=== PATIENT | female | born 1935 | race Caucasian/White ===

== ENCOUNTER 2018-01-05 13:55 | Inpatient (IN) | payer OTHER ==
[~2018-01-05] VITALS: Ht 157.5 cm; Wt 46.3 kg
--- NOTE | ~2018-01-05 | EKG ---
[place] [address] [facility] [employer] [place] [address] ELECTROCARDIOGRAM REPORT Name: MARNI RODRIGUEZJORIE Scooter Room #: 211-P [facility] [place] .R.#: [id number] Admission: 01/05/18 Attend Phys: Titus Woody MD Discharge: Date of : 33 Report #: [id number] THIS REPORT FOR: //name// [facility] ED Test Date: 2018-01-05 Test Time: 16:09:08 Pat Name: MARIA E RODRIGUEZ Department: Room: 211 Gender: F Commercial Insulator: BETSY : 1935 Requested By: Emely Zavala Order Number: [id number] MD: Dex Coles Measurements Intervals [place] Rate: 145 P: MO: QRS: -40 QRSD: 96 T: 168 QT: 302 QTc: 469 Interpretive Statements Atrial fibrillation with rapid V-rate LVH with secondary repolarization abnormality Anterior Q waves, possibly due to LVH Compared to ECG 10/22/2013 14:46:40 Heart rate has increased Electronically Signed On 01-07-2018 15:18:17 [employer] by Dex Coles [email or web address] <ELECTRONICALLY SIGNED> By: Dex Coles MD, [facility] 01/07/18 1518 [id number] [id number] Dex Coles MD, [facility] /EPI
[2018-01-05 13:55] VITALS: BP 122/66
[~2018-01-05 13:55] MED LIST: ARTIFICIAL TEAR15 M3 OPHTHALMIC; ATORVASTATIN CA40 MG PO; AUGMENTIN 875875 MG PO; FUROSEMIDE 40 M40 M1 PO; JUVEN PACKET1 EACH PO; KEFLEX250 MG PO; KEFLEX500 MG PO; KLOR-CON 1010 MEQ PO; LANOXIN 0.120.125 M1 PO; METOPROLOL SUCC25 M1 PO; MULTI VITAMIN1 EACH PO; NORCO 5-325 TA1 EACH PO; PERCOCET PO; POTASSIUM GLUCO99 M1 PO; POTASSIUM20; PRADAXA75 MG PO; PREDNISONE 10 M10 MG; TRINATAL ULTRA1 EACH PO; TRIPLE ANTIBIO1 EACH TP
[2018-01-05 15:48] LABS: URINE BILIRUBIN NEGATIVE (Negative); URINE BLOOD NEGATIVE (Negative); URINE CLARITY CLEAR; URINE COLOR YELLOW; URINE GLUCOSE-RANDOM* NEGATIVE (Negative); URINE KETONES NEGATIVE (Negative); URINE LEUKOCYTES NEGATIVE (Negative); URINE NITRITE NEGATIVE (Negative); URINE PROTEIN (DIPSTICK) NEGATIVE (Negative); URINE SPECIFIC GRAVITY 1.025 (1.005-1.035); URINE UROBILINOGEN 0.2 E.U./dl (0.2-1.0)
[2018-01-05 16:45] LABS: BASOPHILS 0.4 % (0.0-2.0); EOSINOPHILS 0.1 % (0.0-3.0); HEMATOCRIT 42.2 % (37.0-47.0); HEMOGLOBIN 13.9 gm/dL (12.0-15.0); LYMPHOCYTES 8.5 % (24.0-44.0); MCH 31.4 pg (26.0-34.0); MCV 94.9 fL (80.0-100.0); MONOCYTES 3.5 % (1.0-8.0); PLATELET COUNT 255 thou/uL (150-400); POLYS 87.5 % (36.0-66.0); RBC 4.45 mil/uL (4.20-5.00); RDW 14.5 % (10.5-14.5); WBC 12.6 thou/uL (4.0-11.0)
[2018-01-05 16:54] LABS: ANION GAP 11 mmol/L (7-16); BUN 45 mg/dL (7-18); CALCIUM 9.9 mg/dL (8.5-10.1); CHLORIDE 106 mmol/L (98-107); CO2 25 mmol/L (21-32); CREATININE 1.2 mg/dL (0.6-1.0); GLUCOSE 97 mg/dL (74-106); POTASSIUM 4.1 mmol/L (3.5-5.1); SODIUM 142 mmol/L (136-145)
[2018-01-05 17:02] LABS: ALBUMIN 3.4 g/dL (3.4-5.0); LIPASE 72 U/L (73-393); SGOT 29 U/L (15-37); SGPT 33 U/L (30-65); TOTAL BILIRUBIN 0.5 mg/dL (<0.1-1.0); TOTAL PROTEIN 6.9 g/dL (6.4-8.2); TROPONIN-I < 0.04 ng/mL (<0.06)
[2018-01-05 19:45] VITALS: BP 123/51
[2018-01-05 20:07] VITALS: BP 109/82
[2018-01-05 23:41] VITALS: BP 115/55
[2018-01-06 04:45] LABS: CALCIUM 9.2 mg/dL (8.5-10.1); CREATININE 0.9 mg/dL (0.6-1.0); MAGNESIUM 1.8 mg/dL (1.8-2.4); POTASSIUM 4.6 mmol/L (3.5-5.1)
[2018-01-06 04:48] VITALS: BP 110/57
[2018-01-06 07:05] VITALS: BP 109/70
[2018-01-06 11:15] VITALS: BP 111/54
[2018-01-06 15:50] VITALS: BP 107/63
[2018-01-06 19:35] VITALS: BP 119/66
[2018-01-07 04:00] VITALS: BP 123/69
[2018-01-07 04:15] LABS: HEMATOCRIT 38.3 % (37.0-47.0); HEMOGLOBIN 12.6 gm/dL (12.0-15.0); MCH 31.3 pg (26.0-34.0); RBC 4.03 mil/uL (4.20-5.00); RDW 13.9 % (10.5-14.5); WBC 13.6 thou/uL (4.0-11.0)
[2018-01-07 04:32] LABS: CALCIUM 9.3 mg/dL (8.5-10.1); CREATININE 0.9 mg/dL (0.6-1.0); POTASSIUM 3.8 mmol/L (3.5-5.1)
[2018-01-07 08:05] VITALS: BP 128/69
[2018-01-07 11:50] VITALS: BP 130/79
[2018-01-07 16:30] VITALS: BP 135/75
[2018-01-07 20:39] VITALS: BP 135/78
[2018-01-08 04:10] VITALS: BP 127/85
[2018-01-08 07:25] VITALS: BP 124/73
[2018-01-08 11:20] VITALS: BP 140/88
[2018-01-08 15:00] VITALS: BP 146/77
[2018-01-08 20:30] VITALS: BP 133/84
[2018-01-09 04:30] VITALS: BP 128/79
[2018-01-09 05:37] LABS: HEMATOCRIT 37.7 % (37.0-47.0); HEMOGLOBIN 12.5 gm/dL (12.0-15.0); MCH 31.4 pg (26.0-34.0); MCHC 33.1 g/dL (28.0-37.0); MCV 94.9 fL (80.0-100.0); RBC 3.98 mil/uL (4.20-5.00); WBC 11.4 thou/uL (4.0-11.0)
[2018-01-09 05:49] LABS: CALCIUM 9.5 mg/dL (8.5-10.1); CREATININE 0.8 mg/dL (0.6-1.0); POTASSIUM 4.1 mmol/L (3.5-5.1)
[2018-01-09 05:58] LABS: CHOLESTEROL 126 mg/dL (<200); HDL CHOLESTEROL 48 mg/dL (>40); LDL CHOLESTEROL 61 mg/dL (<100); TC:HDL 2.6 Ratio (Not establshd); TRIGLYCERIDE 89 mg/dL (<150); VLDL 18 mg/dL (<40)
[2018-01-09 05:59] LABS: SERUM ASSESSMENT Clear
[2018-01-09 06:22] LABS: TSH 0.102 uIU/mL (0.358-3.740)
[2018-01-09 07:10] VITALS: BP 131/79
[2018-01-09 11:15] VITALS: BP 115/71
[2018-01-09] MEDS ORDERED: DUONEB 2.5-0.5 M3 ML INH (13:27)
[2018-01-09] MEDS ORDERED: PULMICORT0.5 MG/21 INH (13:28)
[2018-01-09] MEDS ORDERED: CEFDINIR300 MG PO (13:28)
[2018-01-09] MEDS ORDERED: PREDNISONE 10 M10 MG PO (13:29)
[2018-01-09] MEDS ORDERED: MUCINEX DM ER1 EAC1 PO (13:30)
[2018-01-11 23:06] LABS: ADENOVIRUS Negative (Negative); INFLUENZA A Negative (Negative); INFLUENZA B Negative (Negative); METAPNEUMOVIRUS Negative (Negative); PARAINFLUENZA 1 Negative (Negative); PARAINFLUENZA 2 Negative (Negative); PARAINFLUENZA 3 Negative (Negative); RHINOVIRUS Negative (Negative); RSV A Negative (Negative); RSV B Negative (Negative)
[2018-03-23] MEDS ORDERED: PANTOPRAZOLE SO40 M1 PO (10:19)
== END 2018-01-09 14:40 | DRG 871 ==
LOC: ER 13:55 → 2N 17:13 → EROBS 17:13 → 2N 19:46
PROVIDERS: Hospitalist; Nurse Practitioner; Nurse Practitioner Family; Registered Nurse
DX: A41.9 Sepsis, unspecified organism (principal); J18.9 Pneumonia, unspecified organism; J96.01 Acute respiratory failure with hypoxia; N17.9 Acute kidney failure, unspecified; J44.1 Chronic obstructive pulmonary disease with (acute) exacerbation; J44.0 Chronic obstructive pulmonary disease with (acute) lower respiratory infection; I48.91 Unspecified atrial fibrillation; I50.9 Heart failure, unspecified; F17.210 Nicotine dependence, cigarettes, uncomplicated; E86.0 Dehydration; M62.84 Sarcopenia; R19.7 Diarrhea, unspecified; J06.9 Acute upper respiratory infection, unspecified; Z66 Do not resuscitate; Z79.899 Other long term (current) drug therapy; Z90.10 Acquired absence of unspecified breast and nipple; Z90.710 Acquired absence of both cervix and uterus; Z88.6 Allergy status to analgesic agent
CPT/HCPCS: 10194

== ENCOUNTER → 2018-01-17 | Outpatient (CLI) | payer OTHER ==
[~2018-01-17] MED LIST changes: +CEFDINIR300 MG PO; +DUONEB 2.5-0.5 M3 ML INH; +MUCINEX DM ER1 EAC1 PO; +PANTOPRAZOLE SO40 M1 PO; +PREDNISONE 10 M10 MG PO; +PULMICORT0.5 MG/21 INH
== END ==
LOC: CAT 09:18
DX: K57.30 Diverticulosis of large intestine without perforation or abscess without bleeding (principal); J98.11 Atelectasis; M47.895 Other spondylosis, thoracolumbar region; M41.86 Other forms of scoliosis, lumbar region; I51.7 Cardiomegaly; I25.10 Atherosclerotic heart disease of native coronary artery without angina pectoris; I48.91 Unspecified atrial fibrillation; I10 Essential (primary) hypertension; E78.5 Hyperlipidemia, unspecified

== ENCOUNTER → 2019-06-03 | Outpatient (CLI) | payer OTHER | LOC: SPEECH 10:55 → RAD 10:55 | DX: J18.9 Pneumonia, unspecified organism (principal); R13.12 Dysphagia, oropharyngeal phase; R05 Cough ==

== ENCOUNTER 2020-05-15 11:04 | Emergency (ER) | payer OTHER ==
[~2020-05-15] VITALS: Ht 152.4 cm; Wt 49.9 kg
[2020-05-15] MEDS ORDERED: XARELTO10 MG PO (11:20)
[2020-05-15] MEDS ORDERED: ZOLOFT100 MG PO (11:23)
[2020-05-15 12:35] LABS: HEMATOCRIT 39.8 % (37.0-47.0); HEMOGLOBIN 13.1 gm/dL (12.0-15.0); MCH 30.5 pg (26.0-34.0); MCHC 32.9 g/dL (28.0-37.0); MCV 92.6 fL (80.0-100.0); RBC 4.29 mil/uL (4.20-5.00); RDW 14.8 % (10.5-14.5); WBC 8.9 thou/uL (4.0-11.0)
[2020-05-15 12:49] LABS: APTT 45.3 Seconds (24.5-32.8); CALCIUM 9.4 mg/dL (8.5-10.1); CREATININE 1.1 mg/dL (0.6-1.0); INR 1.3; PROTIME 13.8 Seconds (9.3-11.4)
[2020-05-15 12:51] LABS: POTASSIUM 4.2 mmol/L (3.5-5.1)
[2020-05-15 13:52] VITALS: BP 126/73
== END 2020-05-15 13:52 | disposition home or self-care (01) ==
LOC: ER 11:04
PROVIDERS: Emergency Medicine
DX: R04.0 Epistaxis (principal); F17.210 Nicotine dependence, cigarettes, uncomplicated; I48.91 Unspecified atrial fibrillation; E78.5 Hyperlipidemia, unspecified; I50.9 Heart failure, unspecified; J44.9 Chronic obstructive pulmonary disease, unspecified; Z79.01 Long term (current) use of anticoagulants; Z88.5 Allergy status to narcotic agent; Z79.899 Other long term (current) drug therapy; Z90.89 Acquired absence of other organs; Z90.710 Acquired absence of both cervix and uterus; Z98.890 Other specified postprocedural states

== ENCOUNTER 2020-11-19 11:17 | Emergency (ER) | payer OTHER ==
[~2020-11-19] VITALS: Ht 157.5 cm; Wt 47.6 kg
[~2020-11-19 11:17] MED LIST changes: +XARELTO10 MG PO; +ZOLOFT100 MG PO
[2020-11-19 15:03] LABS: HEMATOCRIT 40.8 % (37.0-47.0); MCH 28.4 pg (26.0-34.0); MCHC 31.8 g/dL (28.0-37.0); MCV 89.1 fL (80.0-100.0); RBC 4.58 mil/uL (4.20-5.00); RDW 16.8 % (10.5-14.5); WBC 13.2 thou/uL (4.0-11.0)
[2020-11-19 15:10] LABS: CREATININE 0.8 mg/dL (0.6-1.0); POTASSIUM 3.7 mmol/L (3.5-5.1)
[2020-11-19 15:13] LABS: URIC ACID* 5.5 mg/dL (2.6-6.0)
[2020-11-19 16:12] VITALS: BP 148/82
== END 2020-11-19 16:12 | disposition home or self-care (01) ==
LOC: ER 11:17
PROVIDERS: Emergency Medicine
DX: S63.502A Unspecified sprain of left wrist, initial encounter (principal); I48.91 Unspecified atrial fibrillation; E78.5 Hyperlipidemia, unspecified; I50.9 Heart failure, unspecified; J44.9 Chronic obstructive pulmonary disease, unspecified; F17.210 Nicotine dependence, cigarettes, uncomplicated; Z90.710 Acquired absence of both cervix and uterus; Z79.899 Other long term (current) drug therapy; Z88.5 Allergy status to narcotic agent; X58.XXXA Exposure to other specified factors, initial encounter; Y93.89 Activity, other specified; Y92.89 Other specified places as the place of occurrence of the external cause; Y99.8 Other external cause status

== ENCOUNTER → 2021-02-02 | Outpatient (CLI) | payer OTHER | LOC: CAT 10:05 | PROVIDERS: ATTEND Internal Medicine | DX: R91.1 Solitary pulmonary nodule (principal); J81.0 Acute pulmonary edema; I50.9 Heart failure, unspecified ==

== ENCOUNTER 2021-02-11 16:22 | Inpatient (IN) | payer OTHER ==
[~2021-02-11] VITALS: Ht 157.5 cm; Wt 53.1 kg
[2021-02-11 16:26] VITALS: BP 134/78
[2021-02-11] MEDS ORDERED: MAGNESIUM250 M1 PO (17:41)
[2021-02-11] MEDS ORDERED: ACETAMINOPHEN500 M1 PO (17:42)
[2021-02-11 18:17] LABS: ABSOLUTE NEUTROPHILS 7.7 thou/uL (1.4-8.2); BASOPHILS 0.8 % (0.0-2.0); EOSINOPHILS 0.6 % (0.0-3.0); HEMATOCRIT 40.2 % (37.0-47.0); HEMOGLOBIN 12.9 gm/dL (12.0-15.0); LYMPHOCYTES 15.3 % (24.0-44.0); MCH 28.3 pg (26.0-34.0); MCHC 32.1 g/dL (28.0-37.0); MONOCYTES 6.4 % (1.0-8.0); PLATELET COUNT 365 thou/uL (150-400); POLYS 76.9 % (36.0-66.0); RBC 4.57 mil/uL (4.20-5.00); RDW 16.9 % (10.5-14.5)
[2021-02-11 18:23] LABS: POTASSIUM 4.2 mmol/L (3.5-5.1)
[2021-02-11 18:26] LABS: URINE BILIRUBIN NEGATIVE (Negative); URINE BLOOD NEGATIVE (Negative); URINE CLARITY SL CLOUDY; URINE COLOR YELLOW; URINE GLUCOSE-RANDOM* NEGATIVE (Negative); URINE KETONES NEGATIVE (Negative); URINE LEUKOCYTES-REFLEX NEGATIVE (Negative); URINE NITRITE-REFLEX NEGATIVE (Negative); URINE PROTEIN (DIPSTICK) NEGATIVE (Negative); URINE UROBILINOGEN 0.2 E.U./dl (0.2-1.0)
[2021-02-11 18:29] LABS: ALBUMIN 3.4 g/dL (3.4-5.0); TOTAL BILIRUBIN 0.4 mg/dL (0.2-1.0); TOTAL PROTEIN 7.4 g/dL (6.4-8.2)
[2021-02-11 18:33] LABS: INR 1.4; PROTIME 14.7 Seconds (9.3-11.4)
[2021-02-11 23:23] VITALS: BP 124/77
[2021-02-11 23:29] VITALS: BP 132/78
[2021-02-12 00:28] VITALS: BP 139/70
[2021-02-12 04:31] LABS: CALCIUM 9.6 mg/dL (8.5-10.1); CREATININE 0.9 mg/dL (0.6-1.0)
[2021-02-12 04:36] LABS: HEMATOCRIT 37.7 % (37.0-47.0); MCH 28.4 pg (26.0-34.0); MCHC 31.8 g/dL (28.0-37.0); MCV 89.5 fL (80.0-100.0); RBC 4.21 mil/uL (4.20-5.00); RDW 16.7 % (10.5-14.5)
--- NOTE | 2021-02-12 06:38 | NUR ---
PT MAKING POOR PROGRESS TOWARDS GOALS. NOTED DOSE OF ATIVAN GIVEN TO PT PRIOR TO ADMISSION TO THE FLOOR. PT ARRIVED VIA CART, PLACED IN ROOM 353. PT SEDATED, MOVES AWAY FROM NOXIOUS STIMULI AND MOANS WITH MOVEMENT. SHE DID NOT RESPOND VERBALLY. ADMISSION ASSESSMENTS COMPLETED ABLE. CONTINUE TO MONITOR.
[2021-02-12 08:15] VITALS: BP 139/78
[2021-02-12] MEDS ORDERED: DEPAKOTE 250MG250 M1 PO (14:15)
--- NOTE | 2021-02-12 16:11 | NUR ---
INITIAL ASSESSMENT/DISCHARGE NOTE: Received consult for discharge planning. ALIVIA reviewed chart and spoke with nursing and attending physician. Pt was admitted from home due to confusion. Psych consult ordered. Pt has been accepted to [facility] unit. [facility] is able to accept pt today. ALIVIA spoke with pt's dtr, Sita, via phone. Introduced role of ALIVIA. Pt has lived at home with Sita for the past 20 and is w/c bound. Per Sita, pt's care needs have increased over the past several months and pt may need usp care placement. Sita states pt has senior it architect care insurance. [facility]. Pt's PCP is Dr. Kolby Casillas. ALIVIA explained pt's acceptance to [facility]. Pt's dtr is agreeable ALIVIA provided contact info for [facility] unit and [facility] SW office. [facility] to follow up and assist as needed with discharge planning.
== END 2021-02-12 16:49 | disposition home or self-care (01) | DRG 556 ==
LOC: ER 16:22 → 3W 20:45 → EROBS 20:45 → 3W 02-12 00:07
PROVIDERS: Nurse Practitioner Family; Physician Assistant; ADMIT Internal Medicine; ATTEND Internal Medicine
DX: M25.551 Pain in right hip (principal); G93.40 Encephalopathy, unspecified; F05 Delirium due to known physiological condition; F03.91 Unspecified dementia, unspecified severity, with behavioral disturbance; I50.9 Heart failure, unspecified; I48.91 Unspecified atrial fibrillation; E78.5 Hyperlipidemia, unspecified; J44.9 Chronic obstructive pulmonary disease, unspecified; I35.0 Nonrheumatic aortic (valve) stenosis; I71.4 Abdominal aortic aneurysm, without rupture; Z87.81 Personal history of (healed) traumatic fracture; Z90.710 Acquired absence of both cervix and uterus; Z88.6 Allergy status to analgesic agent; Z90.11 Acquired absence of right breast and nipple; Z85.3 Personal history of malignant neoplasm of breast; Z87.891 Personal history of nicotine dependence

== ENCOUNTER 2021-02-12 15:21 | Inpatient (IN) | payer OTHER ==
[~2021-02-12] VITALS: Ht 162.6 cm; Wt 92.8 kg
[~2021-02-12 15:21] MED LIST changes: +ACETAMINOPHEN500 M1 PO; +DEPAKOTE 250MG250 M1 PO; +MAGNESIUM250 M1 PO
[2021-02-12 17:16] VITALS: BP 124/72
--- NOTE | 2021-02-12 17:18 | NUR ---
85 YEAR OLD FEMALE ARRIVES TO FLOOR VIA WC FROM [facility] AT APPROX 1700. PT WAS REPORTADLY BROUGHT TO ER LAST PM ND DROPPED OFF BY HER AUGHTER-DANILO ROWLEY WITH WHOM SHE LIVES-PER NURSING REPORT HAS HAD INCREASED CONFUSION SINCE FALL APPROX 2 WEEKS AGO-DAUGHTER REPORTS BEING "UNABLE TO TAKE CARE OF HER ANYMORE" DAUGHTER CONTACTED VIA PHONE AND CONSENT TO TREAT/ADMIT CONSENTS OBTAINED. HT/WT AND ADMIT VS OBTAINED AT APPROX 1710 AND APPEAR TO BE WNL. SPEECH [id number] APPEAR OPPOSED TO STAYING IN BED WILL YELL OUT ABRUPTLY "GET ME OUT OF HERE"[place] RISK HAS RECENT [id number] TO GET OUT OFBED AT LEAST THREE TIMES DURING ADMIT INTERVIEW TRIGGERING BED EXIT ALARM. YELLING OUT "HELP HELP I NEED TO GET OUT OF HERE" REQUIRES PIVOT TRANSFER WITH 1-2 STAFF. BRIEF PLACED AND BROUGHT TO DAYROOM FOR SUPPER
[2021-02-12 19:40] VITALS: BP 150/97
--- NOTE | 2021-02-12 22:26 | NUR ---
Assumed care on 02/12/21 @ 1900, seated in a lesia chair in the day room. Cooperated with assessment, HRRR, S1S2 noted, ABD N x 4Q, Lungs CTA bilat. Oriented only to person. Able to give the month and date of her , but not the year, unable to report the current date or any other orientation questions.Unable to answer mental health questions, however appears to startle easily and seems anxious. Was able to take depakote whole with water. High fall risk after falling 2 weeks ago, with increased confusion since then. In bed at this writing with bed in low position, bed alarm set. Will continue to monitor as per unit protocol for safety and comfort.
[2021-02-12 23:07] VITALS: BP 150/97
[2021-02-13 09:18] VITALS: BP 108/87
--- NOTE | 2021-02-13 16:17 | NUR ---
PT ORIENTED TO PERSON ONLY...SCREAMS OFTEN...TOOK SOME OF MORN MEDS BUT REFUSED VITAMINS...
[2021-02-13 19:15] VITALS: BP 141/79
[2021-02-13 22:36] VITALS: BP 141/79
--- NOTE | 2021-02-14 03:39 | NUR ---
Assumed care on 02/13/21 @ 1900, A&Ox1 to person only. Took meds whole with water. Seated in lesia chair, incontinent of bladder, incontinent care given. Transferred to bed x1 assist @ HS. Bed in low position, bed alarm set, will continue to monitor for safety and comfort as per unit protocol.
[2021-02-14 08:29] VITALS: BP 134/81
--- NOTE | 2021-02-14 09:27 | NUR ---
DOES APPEAR SOMULENT UPON INITIAL CHECKS THIS AM-RESTING QUIETLY IN LONG INTERVALS IN GERICHAIR WITH PEERS. ATTEMPTED TO FEED BREAKFAST BY REMAINS SOMULENT DESPITE ROUSING EASILY TO VERBAL STIMULI WILL FALL BACK TO SLEEP WITHIN A MINUTE OR LESS. COUGH NOTED AFTER 1-2 BITES SO BREAKFAST HELD UNTIL MORE AWAKE/ALERT. PULSE NOTED TO BE 40 ON MACHINE-RECHECKED APICALLY BY RN AND RATE IS 56 AND VERY IRREGULAR. DIGOXIN HELD-WILL ALERT DR.S COTE DURING AM ROUNDS TO ABOVE ASSESSMENT.
--- NOTE | 2021-02-14 16:43 | NUR ---
APPEARS MORE AWAKE AND ALERT FROM APPROX 1015 AM ON-ABLE TO FEED SELF BREAKFAST-IS VERBAL AND SMILING AT STAFF. CONVERSATION CONTINUES TO BE WORD SALAD WITH AN OCCASSIONAL COHERENT STATEMENT. RESTLESS AT TIMES AND TRYING TO STAND UP OUT OF CHAIR WITHOUT ASSIST-WHEN STAFF ATTEMPTED TO ASSIST HER TO WALK SHE APPEARED RESTLESS AND EANTING TO MOVE SHE BEGAN TO YELL LOUDLY AND REFUSED TO UNBEND KNEES/LEGS OR STAND INUPRIGHT POSITION. LAID DOWN ON BED AT 1100 TO GET OFF OF COCYX BUT IMMEDIATLY TRIGGERED BED ALARM BY SITTING ON SIDE OF BED AND ATTEMPTING TO STAND. COCYX IS NOTED TO BE SLIGHTLY REDDNED DURING INCONTINENT CARE-BARRIER CREAM APPLIED AND WAFFLE CUSHION PLACED IN GERICHAIR
--- NOTE | 2021-02-14 16:52 | NUR ---
DR. Yossi COTE NOTIFIED OF HEART RATE APICAL DURING AM ROUNDS AT APPROX 1020 AM-NOTIFIED OF IRREGUALR RHYTHYM WELL. NO NEW ORDERS RECEIVED
[2021-02-14 20:00] VITALS: BP 126/82
--- NOTE | 2021-02-15 03:02 | NUR ---
ASSESSMEN: PT REMAIN ALERT TO SELF. USES WORD SALAD. RAMBLES. COCCYX IS RED, INCONTINENT, WEARS BRIEFS. PIVIOT WITH 2 TO BED, FEAR OF FALLING; GRABS AND STIFFENS UP WITH TRANSFERS. NEED ASSISTANCE WITH FEEDING. WILL CONTINUE TO MONITOR.
[2021-02-15 06:11] VITALS: BP 145/88
--- NOTE | 2021-02-15 11:35 | NUR ---
Nutrition: Pt admit with major neurocognitive disorder. Per H&P dtr reported increased confusion past 2 weeks. Pt speaks word salad. Per chart wt's in 2020 were 105 lb and 110 lb, both noted as "pt stated." Wt's in 2018 were around 100 lb; so no apparent significant wt loss from hx. Intake 0-25% since admit. Albumin WNL, BUN 25. Assess at mild nutrition risk at this time. Will order Ensure TID and RD to follow up on intake on or before 02/18/21.
--- NOTE | 2021-02-15 18:39 | NUR ---
assumed pt care at 0700. oriented to self. Assessments completed,vss. took meds crushed in pudding. pt was calm and unco-operative with care. denies si/hi. denies pain. pt refused to work with physical therapy, refused covid test. AT 1650 DIRECTOR RECORDS MANAGEMENT GOT aSSISSTANCE TO GET COVID TEST DONE. AMBULATES WITH A KAMRYN-CHAIR. At this time pt is in the day room. will continue to monitor pt.
[2021-02-15 19:56] VITALS: BP 116/78
--- NOTE | 2021-02-16 04:30 | NUR ---
02-15-21 CARE TRANSFERRED 0 OBSERVED PT SITTING IN RECLINER IN DAY ROOM. LATER PT AAOX1, VSS, RR EVEN AND NONLABORED ON RA. PT DENIES PAIN AND SI/HI. PT HAS REMAINED CALM AND COOPERATIVE, BUT DOES PULL BACK WHEN PRESENTING MEDICATION ON SPOON. PT HAD NO DIFFICULTIES TAKING MEDICATION CRUSHED IN PUDDING. ZERO S/S OF ACUTE DISTRESS NOTED, PT WILL CONTINUE TO BE MONITOR PER [facility].
[2021-02-16 05:51] LABS: CALCIUM 9.8 mg/dL (8.5-10.1); CREATININE 0.9 mg/dL (0.6-1.0)
[2021-02-16 10:55] VITALS: BP 113/70
--- NOTE | 2021-02-16 12:03 | NUR ---
1155 RESUMMED CARE FROM OVERNIGHT SHIFT THIS AM, PATIENT IN DAY ROOM SITTING IN KAMRYN CHAIR. PATIENT ATE BREAKFAST TOOK MEDICATION WITHOUT INCIDENCE. PATIENT ALERT ORIENTED TO SELF ONLY PATIENT WAS YELLING FOR HER AFTER BREAKFAST. PATIENTS CALLED AND TALKED WITH PATIENT, PATIENT UNABLE TO TELL ME ABOUT SI/HI/AH/VH DUE TO COGNITIVE DO. PATIENTS ABDOMEN SOFT BOWEL SOUNDS PRESENT PATIENTS LUNGS CLEAR. WILL CONTINUE TO MONITOR PATIENT FOR SAFETY AND BEHAVIORS.
--- NOTE | 2021-02-16 16:11 | NUR ---
ALIVIA send referrals to the following: [facility] [place]
--- NOTE | 2021-02-16 17:22 | NUR ---
1600 RESUMMED CARE THIS AM FROM OVERNIGHT SHIFT THIS AM, PATIENT IN DAY ROOM QUIET. PATIENT ORIENTED TO SELF ONLY PATIENT ATE A SMALL AMOUNT FOR BREAKFAST. PATIENT TOOK MEDS CRUSHED IN APPLESAUCE, PATIENT UNABLE TO TELL ME ABOUT SI/HI/AH/VH DUE TO COGNITIVE DO. PATIENTS ABDOMEN SOFT BOWEL SOUNDS PRESENT PATIENTS LUNGS CLEAR. PATIENT HAS NOT DISPLAYED ANY BEHAVIORS THIS SHIFT CALM COOPERATIVE. WILL CONTINUE TO MONITOR PATIENT FOR SAFETY AND BEHAVIORS.
[2021-02-16 19:26] VITALS: BP 136/92
--- NOTE | 2021-02-17 00:18 | NUR ---
Assumed care for pt at 1900. Pt resting in bed at start of this shift with eyes closed and appears to be sleeping. Pt is arousable for shift assessment and HS medications. Pt takes medications crushed in applesauce. Pt opens eyes and makes eye contact when spoken to, and does startle upon inital interaction. Pt was calm and cooperative. Pt denies pain. Pt denies SI/HI. Pt is on q12min rounds for safety. Will continue to monitor for any changes in mood/behavior. Pt last BM reported as being on 02/15/21.
[2021-02-17 10:03] VITALS: BP 127/70
[2021-02-17 11:37] VITALS: BP 127/70
--- NOTE | 2021-02-17 12:35 | NUR ---
Nutrition follow-up: Wt stable from assessement earlier in week. Many meals missing since prior assessement; ate 40% at breakfast today, RN reports pt is eating now and doing fairly well. RN also reported pt did drink Ensure this am. Mag ox, vitamin, statin and other meds reviewed. BUN 26, last albumin WNL. Continues at mild nutrition risk; RD reassess 02/22.
--- NOTE | 2021-02-17 12:39 | NUR ---
1235 RESUMMED CARE FROM OVERNIGHT THIS AM, PATIENT IN DAY ROOM SITTING QUIETLY. PATIENT ATE MEDICATION TOOK MEDICATION WITHOUT INCIDENCE. PATIENT ALERT TO SELF ONLY PATIENT UNABLE TO TELL ME ABOUT SI/HI/AH/VH AT PRESENT. PATIENT HAS NEUROCOGNITIVE DO PATIENTS ABDOMEN SOFT BOWEL SOUNDS PRESENT; PATIENTS LUNGS CLEAR. PATIENT CALM COOPERATIVE WORKED WITH PT/OT TODAY DID WELL. WILL CONTINUE TO MONITOR PATIENT FOR SAFETY AND BEHAVIORS.
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
[2021-02-17 15:26] LABS: URINE BILIRUBIN NEGATIVE (Negative); URINE BLOOD 3+ (Negative); URINE CLARITY CLEAR; URINE COLOR YELLOW; URINE GLUCOSE-RANDOM* NEGATIVE (Negative); URINE KETONES 1+ (Negative); URINE LEUKOCYTES-REFLEX NEGATIVE (Negative); URINE NITRITE-REFLEX NEGATIVE (Negative); URINE PROTEIN (DIPSTICK) TRACE (Negative); URINE SPECIFIC GRAVITY >= 1.030 (1.005-1.035); URINE UROBILINOGEN 0.2 E.U./dl (0.2-1.0)
[2021-02-17 15:35] LABS: CASTS None Seen /LPF (None Seen); MUCUS 0-3 Light strn/LPF (None Seen); SQUAMOUS 4-10 Moderate /LPF (0-3)
[2021-02-17 15:36] LABS: CRYSTALS None Seen /LPF (None Seen); URINE RBC >20 Many /HPF (0-2); URINE WBC-REFLEX 0-5 Rare /HPF (0-5)
[2021-02-17 18:56] VITALS: BP 136/89
[2021-02-17 20:00] VITALS: BP 136/89
--- NOTE | 2021-02-18 03:54 | NUR ---
Assumed pt care at 1900. Pt alert to self only,confused but co-operative with cares.VSS.Denies pain on assessment. Took meds crushed w/o any problems.Incontinent of B&B,moisture barrier applied to periarea. Assist of 2 with cares. Fall precautions in place,resting w/o any distress noted. Will continue to monitor pt.
[2021-02-18 07:30] VITALS: BP 110/64
--- NOTE | 2021-02-18 09:00 | NUR ---
CRUSHED MEDS THAT NEEDED TO BE CRUSHED AND PUT IN YOGART. PT REFUSING TO TAKE MEDICATION AT THIS TIME. PT SAID SHE DIDN'T NEED IT. TRIED TO TELL HER THAT THE PRESCIBED THE MEDICATION AND NEED TO TAKE IT. PT STILL REFUSED. TOLD DR. WAYNE OF MED REFUSAL HE IS AWARE.
[2021-02-18 09:30] VITALS: BP 110/64
--- NOTE | 2021-02-18 10:52 | NUR ---
PT ABLE TO TAKE DEPAKOTE SPRINKLES IN PUDDING. PT DID ACCEPT THIS AND REST OF PUDDING.
--- NOTE | 2021-02-18 13:00 | NUR ---
ASSISTED PT WITH GETTING BRIEF CHANGED. PT WAS INCON WITH SMEAR OF STOOL. PT HAD BLOOD TINGE TO SIDE OF BRIEF. PT DID HAVE STRAIGHT CATH YESTERDAY FOR URINE.
--- NOTE | 2021-02-18 14:49 | NUR ---
PT SITTING IN DINING ROOM, PT SEEMS CALM AT THIS TIME GAVE SQUEEZY BALL FOR HER, ASKED PT WHAT COLOR, PT DIDN'T KNOW.
--- NOTE | 2021-02-18 16:00 | NUR ---
ALIVIA recieved a call from Pt's daughter, Kasey, concerning placement. Kasey informed she found a possible placement at [facility] in [place]. Kasey also stated she would not be able to secure the placment until next week due to the holiday. ALIVIA sent a referral to [facility]. ALIVIA will follow up
[2021-02-18 20:14] VITALS: BP 122/71
--- NOTE | 2021-02-19 05:41 | NUR ---
Assumed care on 02/18/21 @ 1900, admission DX: Major Neurocognitive Disorder, A&Ox1-2 oriented only to person only. Takes meds crushed in pudding, including Depakote sprinkles. HRRR, Lungs CTA, possibly diminished, ABD N x 4Q, BM on 02/18. High fall risk, and utilizes a w/c or lesia chair. Slept 7.4 hours overnight on 02/18, bed in low position, bed alarm set.
[2021-02-19 08:46] VITALS: BP 106/67
--- NOTE | 2021-02-19 12:49 | NUR ---
[facility]ED. PATIENT NEED ASSIST OF STAFF TO FEED, AND COMPLETE ADL. ALL MORNING MEDICATION GIVEN IN PUDDING, CRUSHABLE MED CRUSHED, WELL TOLERATED. PATIENT IS ALERT, AND ORIENTED X 1-2 WITH PERIODS OF FORGETFULNESS, AND CONFUSION. APPETITE POOR, TOOK A FEW BITES OF BREAKFAST, AND ATTEMPTING TO ENCOURAGE HER TO EAT LUNCH, BUT PATIENT HOLDING FOOD IN HER MOUTH, SHE IS SLOWLY DRINKING ENSURE. PATIENT DENIES SUICIDAL IDEATION, NOT ABLE TO APPROPRIATELY RESPOND TO FURTHER ASSESSMENT QUESTIONS DUE TO COGNITIVE IMPAIRMENT. AFFECT IS FLAT/BLUNTED, MOOD CALM, SHE DENIES HAVING PHYSICAL PAIN. NO SIGN OF ACUTE DISTRESS NOTED AT THIS TIME, WILL MONITOR FOR SAFETY.
[2021-02-19 19:22] VITALS: BP 146/69
--- NOTE | 2021-02-19 23:36 | NUR ---
PT SLEEPING IN LOUNGE CHAIR IN DAY ROOM UPON ARRIVAL TO SHIFT. PT EASILY AROUSED AND COMPLIANT WITH MEDS IN PUDDING. GOOD EYE CONTACT, FLAT AFFECT, SPEECHE MUMBLED. BED ALARM ON.
--- NOTE | 2021-02-20 08:32 | NUR ---
PT SITTING IN RECLINER CHAIR FOR BREAKFAST. PT NEEDS ENCOURAGED TO EAT. PT TAKES A FEW BITES OF FOOD. PUT DEPAKOTE SPRINKLES IN OATMEAL AND PT STATED SHE DIDN'T WANT OATMEAL. PT TOOK BITE AND KEPT IN HER MOUTH, THEN TOOK OATMEAL BOWL AND SPIT MED MIX IN IT. CRUSHED OTHER MEDS AND PUT IN YOGART, PT KEEPING MEDS IN MOUTH AND WAS REACHING FOR OATMEAL BOWL AGAIN, PT THEN REACHED FOR OJ AND SPIT IN JUICE.
[2021-02-20 08:40] VITALS: BP 129/78
[2021-02-20 09:24] VITALS: BP 129/78
--- NOTE | 2021-02-20 11:39 | NUR ---
PARTICIPATED IN R.T. THERAPY THIS MORNING. SHE KICKED THE BEACH BALL BETWEEN PEERS AND STAFF. SHE STATED SHE KNEW SHE HAD TO TAKE HER MEDICATIONS, GO TO THERAPY AND TALK WITH THE DRMarge BEFORE SHE CAN BE DISCHARGED. SHE IS PLEASANT TODAY DURING THERAPY.
--- NOTE | 2021-02-20 14:52 | NUR ---
PT WAS EATING CHIPS IN RECLINER CHAIR. ADM SEROQUEL CRUSHED IN ONE BITE OF CUSTARD. PT TAKEN BACK TO ROOM AND WAS INCON OF URINE. PT ALSO HAD SMALL SOFT BM ALSO. APPLIED BARRIER CREAM TO BUTTOCKS, PINK COLOR NOTED TO RT BUTTOCKS, NO SIGNS OF BREAKDOWN. PT HAS SOFT PAD FOR CHAIR.
--- NOTE | 2021-02-20 16:30 | NUR ---
ASSISTED PT BACK TO DINING ROOM DUE TO BED ALARM GOING OFF AND PT SITTING ON SIDE OF BED. PT YELLS OUT WHEN TRANSFERING ASKED PT IF IN PAIN OR SCARED, PT STATED BOTH.
[2021-02-20 19:00] VITALS: BP 141/70
[2021-02-21 00:45] VITALS: BP 129/78
--- NOTE | 2021-02-21 01:10 | NUR ---
Assumed care on 02/20/21 @ 1900, seated in a lesia chair in the day room. A&Ox1, calm and cooperative with assessment and compliant with meds crushed in yogart. HRRR Lungs CTA bilat, ABD N x4Q with bm reported by day nurse. Will continue to monitor for safety and comfort as per unit protocol.
[2021-02-21 08:30] VITALS: BP 132/75
--- NOTE | 2021-02-21 08:45 | NUR ---
PT SITTING IN DINING ROOM IN KAMRYN CHAIR. PT NEEDS ASSISTANCE WITH EATING BREAKFAST. PT CAN FEED SELF IF FOOD IS CUT UP. PT DID TAKE MEDS CRUSHED IN APPLESAUCE. PT ATE 50% OF APPLESAUCE AFTER EATING SOME BREAKFAST. PT HOLDING ONTO STOMACH AND SAID SHE WAS FULL.
[2021-02-21 09:05] VITALS: BP 132/75
--- NOTE | 2021-02-21 14:40 | NUR ---
PT RESTING IN KAMRYN-CHAIR AT THIS TIME. PT SEEMS COMFORTABLE.
[2021-02-21 19:55] VITALS: BP 140/76
[2021-02-22 00:57] VITALS: BP 140/76
--- NOTE | 2021-02-22 01:26 | NUR ---
Assumed care on 02/21/21 @ 1900. In bed, opens eyes to voice. Cooperative with assessment and compliant with medications crushed in applesauce with 6oz of water. Ate about half of the carton of applesauce as a snack. Cooperated with care to wash hands and face, then lip moisturizer applied for dry lips. Lotion applied to upper extremities and face, expressed aproval. Calm and pleasant affect noted. A&O x 1. HRRR. S1S2 noted. Lungs CTA bilat, ABD N BS. Bed in low position, bed alarm set, 3 rails up for mobilty.
[2021-02-22 09:37] VITALS: BP 134/79
[2021-02-22 10:15] VITALS: BP 134/72
[2021-02-22 10:19] VITALS: BP 134/72
--- NOTE | 2021-02-22 13:52 | NUR ---
PATIENT CARE ASSUMED AT 0700- SITTING IN KAMRYN CHAIR IN DINING ANGEL. ALERT TO SELF. POOR APPETITE. DIFFICULTY TAKING MEDICATIONS CRUSHED IN APPLESAUCE. HAD TO ENCOURAGE SEVERAL SPOONS AND THEN REFUSED REMAINDER. MOST OF MEDICATIONS ADMINISTERED. PATIENT QUIET AND EVERY SO OFTEN ATTEMPTS TO GET UP - VERY HIGH FALL RISK. LAP CRISTÓBAL IN PLACE TO PREVENT FALLS. NO YELLING OR ERRATIC BEHAVIOR TODAY. GOOD EYE CONTACT BUT RESPONSE TO QUESTIONS LIMITED. TWO PERSON ASSIST WITH TRANSFERS AND TOLLETING. STAFF HAS BEEN ENCOURAGING TID ENSURE FOR ADDED NUTRITION SINCE APPETITE POOR.
[2021-02-22 19:30] VITALS: BP 136/96
[2021-02-22 20:00] VITALS: BP 136/96
--- NOTE | 2021-02-23 02:53 | NUR ---
PATIENT WAS SITTING UP IN KAMRYN CHAIR IN DINING ROOM ALL EVENING UNTIL SHE WAS ASSISTED TO BED. SHE DENIES PAIN. SHE SPEAKS BUT NONSENSICAL TALK AND SPEAKS VERY LOW. PATIENT A/0X1. SHE ANSWERS YES/NO QUESTIONS APPROPRIATELY. PATIENT HAS BEEN PLEASANT AND COOPERATIVE. INCONTINENCE CARES DONE ROUTINELY AND PRN. PATIENT RESTING WITH EYES CLOSED. PATIENT TOOK MEDS CRUSHED IN ICECREAM. NO SIGNS OF SI/HI/AVH. BED IN LOW POSITION AND BED ALARM IS ON. ROUTINE ROUNDS TO ASSESS SAFETY AND STATUS OF PATIENT.
[2021-02-23 09:38] VITALS: BP 118/58
[2021-02-23 10:24] VITALS: BP 118/58
--- NOTE | 2021-02-23 11:32 | NUR ---
1130 RESUMMED CARE FROM OVERNIGHT SHIFT THIS AM, PATIENT IN DAY ROOM QUIET IN KAMRYN CHAIR. PATIENT ATE VERY LITTLE BREAKFAST DID TAKE MEDICATION CRUSHED IN ICECREAM. PATIENT ALERT ORIENTED TO SELF ONLY PATIENT UNABLE TO TELL ME ABOUT SI/HI/AH/VH DUE TO DEMENTIA. PATIENTS ABDOMEN SOFT BOWEL SOUNDS PRESENT PATIENTS LUNGS CLEAR. NUTRITION CAME TO VISIT PATIENT AND IS GOING TO FIND SOMETHING THE PATIENT LIKES. WILL CONTINUE TO MONITOR PATIENT FOR SAFETY AND BEHAVIORS.
--- NOTE | 2021-02-23 11:32 | NUR ---
ALIVIA contacted Gris at [facility], , concerning referral sent on 02/19/2021. ALIVIA left a message for a call back
--- NOTE | 2021-02-23 13:14 | NUR ---
nutrition status changed to high risk.
[2021-02-23 19:19] VITALS: BP 139/77
[2021-02-23 20:00] VITALS: BP 139/77
--- NOTE | 2021-02-24 03:28 | NUR ---
PATIENT WAS SITTING UP IN KAMRYN CHAIR ON HER WAFFLE CUSHION AND CHAIR ALARM IN DINING ROOM THIS EVENING UNTIL SHE WAS ASSISTED TO BED FOR THE EVENING. SHE IS A/0X1. SHE IS HARD TO UNDERSTAND WHEN SHE TALKS D/T MUMBLING AND NONSENSICAL CONVERSATION. NO INDICATIONS OF PAIN, SI/HI/AVH. PATIENT TOOK HER HS MEDS CRUSHED IN ICE CREAM. SHE IS NOT EATING WELL BUT DID HAVE A CUP OF ICECREAM WITH MEDS. BARRIER CREAM BEING APPLIED TO BUTTOCKS D/T REDNESS AND REPOSITIONING PATIENT TOLERATED. SHE HAS BEEN CALM AND QUIET FOR THE MOST PART AND TO HERSELF. BED IN LOW POSITION AND BED ALARM ON. ROUTINE ROUNDS AND INCONTINENCE CHECKS. CONTINUING TO MONITOR.
[2021-02-24 11:10] VITALS: BP 138/83
--- NOTE | 2021-02-24 12:56 | NUR ---
PATIENT WAS UP SITTING IN GERICHAIR WHEN CARE ASSUMED. SHE IS ALERT, AND ORIENTED X 1, FORGETFUL, AND CONFUSED. PATIENT REQUIRES ASSIST OF STAFF TO FEED, AND TO COMPLETE ADL. PATIENT ATE ABOUT 50% BREAKFAST, DRANK ONE ENSURE. PATIENT TOOK ALL MEDICATION CRUSHED IN PUDDING, WELL TOLERATED. PATIENT FED LUNCH, TOOK AONLY A FEW BITES, ATE OF MAGIC CUP, AND A FEW SIPS OF ENSURE. PATIENT IS NOT ABLE TO APPROPRIATELY RESPOND TO ASSESSMENT QUESTIONS DUE TO COGNITIVE IMPAIRMENT. INCONTINENT CARE PROVIDED PER STAFF. NO AGITAION OR AGGRESSIVE BEHAVIOR NOTED. MOOD IS CALM, AFFECT IS FLAT/BLUNTED, NO SIGN OF ACUTE DISTRESS NOTED AT THIS TIME, WILL MONITOR FOR SAFETY.
--- NOTE | 2021-02-24 15:13 | NUR ---
ALIVIA was able to speak to Joy concerning Pt. [facility] has accepted the Pt but will not be able to transport. They are able to accept the Pt on monday. Discharge set for 02/26/2021 @ 1030 via [employer] [facility]
[2021-02-24 19:35] VITALS: BP 133/79
--- NOTE | 2021-02-24 23:39 | NUR ---
Alert to name only. No speech/behavior suggestive of SI/HI. Some confused speech but at other times she responds coherently. Breath sounds clear. Reg HR auscultated. Color pink with brisk capillary refill and palpable peripheral pulses. Brief and pad saturated with yellow urine. Active bowel sounds over soft, rounded abdomen. Sleeping without s/o distress.
[2021-02-25 10:08] VITALS: BP 121/79
--- NOTE | 2021-02-25 16:26 | NUR ---
SITTING QUIETLY IN DAYROOM MAJORITY OF SHIFT. DID LAY DOWN BRIEFLY AFTER LUNCH-REQUIRES SBA 1-2 TO TRANSFER AND DOES YELL OUT WITH MOVEMENT/POSITION CHANGES-UNABLE TO ANSWER IF HAVING PAIN-NO FACIAL GRIMACING ETC NOTED-SITS WITH EYES CLOSED TIGHTLY BUT WILL OPEN THEM TO VERBAL COMMANDS. TAKES PO FLUIDS WITH PROMPTING AND MEDS CRUSHED IN PUDDING. CONVERSATION RAMBLING-INCOHERENT.
[2021-02-25 19:38] VITALS: BP 128/80
--- NOTE | 2021-02-26 03:01 | NUR ---
ASSUMED CARE FROM DAY SHIFT , PT UP IN GERICHAIR TOLERATING WELL, THEN PLACED IN BED WITH ASSIST OF 2, PT TOOK PO MEDICATION WITH PUDDING. PT RESTING WELL THROUGHOUT FREQ ROUNDING , NO CHAMGES NOTED.
[2021-02-26 07:15] VITALS: BP 124/70
[2021-02-26] MEDS ORDERED: DIGOXIN125 MCG PO (08:49)
[2021-02-26] MEDS ORDERED: LIPITOR40 MG PO (08:52)
[2021-02-26] MEDS ORDERED: METOPROLOL SUCC25 M1 PO (08:54)
[2021-02-26] MEDS ORDERED: DEPAKOTE SPRIN125 MG PO (08:55)
[2021-02-26] MEDS ORDERED: SEROQUEL 25 MG25 M1 PO (08:56)
[2021-02-26] MEDS ORDERED: MAGOX 400400 MG PO (08:57)
[2021-02-26] MEDS ORDERED: METHIMAZOLE5 MG PO (08:58)
[2021-02-26 09:59] VITALS: BP 124/70
--- NOTE | 2021-02-26 10:26 | NUR ---
Alert and orientated to name only. Compliant with meds crushed in pudding. Eats well when fed. Denies SI/HI. Some confused speech. No speech/behavior suggestive of SI/HI. Breath sounds clear. Reg HR auscultated. Color pink with brisk capillary refill and palpable peripheral pulses. Brief dry. Active bowel sounds over soft, round abdomen. Milk of Magnesia given d/t no BM in 4-5 days. Swelling in L wrist noted with old, fading bruise. Dr. Swann notified, Xray ordered. Report called to [facility]. [address] Swann and Dr. Clarke. Plan on placing splint and on L wrist and f/u with outpatient ortho.
--- NOTE | 2021-02-26 11:01 | NUR ---
After tx team, pt came to and explained that she has been thinking things over, and spoke with her sister. Her and her sister decided that her sister will come to this weekend and then pick pt up Monday afternoon. She will stay with her for a couple weeks to assist pt in gathering her affairs, and then she will fly with pt back to [place]. Pt said her sons are in agreement with this plan. Pt left office smiling. contacted Dr. Swann and updated him on pt's plan. He said he is in agreement with a Monday afternoon d/c given pt is still not experiencing SI. team will continue to follow pt during her stay on this unit.
--- NOTE | 2021-02-26 11:15 | NUR ---
ALIVIA spoke with Gris at [facility] concerning d/c orders and follow up appointment. ALIVIA informed Pt has fracture in her wrist and has a follow up with [facility] on 03/01/2021 @ 1030. Leti garciared they would be able to take care of the appointment. D/C documents were emailed to [email or web address]
--- NOTE | 2021-02-27 16:01 | D ---
[facility] [place] [address] DISCHARGE SUMMARY Name: MARIA E RODRIGUEZ Room #: 527B-B DIS IN M.R.#: [id number] Admission: 02/12/21 Attend Phys: Gualberto Swann DO Discharge: 02/26/21 Date of : 33 Report #: [id number] THIS REPORT FOR: cc: Kolby Casillas David J. DO Kerstein, Andrew H. DO ~ DATE OF SERVICE: 02/26/2021 INPATIENT PSYCHIATRIC DISCHARGE SUMMARY ATTENDING PSYCHIATRIST: Gualberto Swann DO CLINICAL ADVISOR AT THE TIME OF DISCHARGE: Tulio Clarke MD DISCHARGE DIAGNOSES: Major neurocognitive disorder, end stage, likely due to Alzheimer's disease with behavioral disturbance, improved; medical comorbidities, acute versus subacute transverse fracture of the radius, avulsion of her stylus on her left hand; hypertension, stable; atrial fibrillation, rate controlled; low TSH, on methimazole, TSH now normal; history of congestive heart failure, neuro decompensation, status post mastectomy with multiple falls. DISCHARGE PLAN: The patient is discharging to [facility]. Psychiatric and medical care to be provided by [facility]. Swelling was noticed on the patient's left dorsal wrist this morning. Radiographs were taken where the transverse radius fracture was noted. I spoke with the patient's daughter, Sita, about this. The patient's left wrist was placed in a splint. The patient was made an appointment this Monday with Dr. Dinero, the hand surgeon at [facility] for the hand swelling and fracture situation. During the patient's stay here at [facility], there was a recognized fall. DISCHARGE MEDICATIONS: As follows: Multivitamin oral daily, digoxin 0.0625 mg every other day, atorvastatin 40 mg oral daily for hyperlipidemia, metoprolol succinate XL 12.5 mg oral daily at 0900 hours for rate control, atorvastatin for hyperlipidemia, digoxin for heart failure. Depakote Sprinkles 500 mg oral twice daily for mood stabilization, Seroquel 37.5 mg oral 3 times a day for psychosis and impulse control, magnesium oxide 400 mg oral daily, supplementation, methimazole 15 mg oral daily for hyperthyroidism. DIET: As follows: She is on a pureed diet consistency. Regular otherwise. She was getting supplements of Ensure Enlive and a Magic Cup with all meals. If the patient stops eating, hospice care should be entertained. LABORATORY DATA: Significant laboratories from this admission are as follows: Hematology on 02/12/2021, white count 9.0, hemoglobin 12.0, hematocrit 37.7, platelet count 323. Coagulation studies from 02/11/2021, PT 14.7, INR 1.4. Chemistries from 02/11/2021 shows sodium 141, potassium was quite low at 2.[address] [address] DISCHARGE SUMMARY Name: MARIA E RODRIGUEZ Room #: 527B-B DIS IN M.R.#: [id number] Admission: 02/12/21 Attend Phys: Gualberto Swann DO Discharge: 02/26/21 Date of : 33 Report #: [id number] that was replaced, got up to 4.0 on 02/16/2021. Chloride 96 initially, bicarbonate 23, anion gap 23, BUN 23, creatinine initially 1.4, improved to 0.9 on 02/16/2021. Estimated GFR 59. A1c 5.5. Chemistries otherwise grossly normal. Urinalysis showed trace protein, 1+ ketones, 3+ blood. There was bacteria, epithelial cells. Microbiology done on the 02/17/2021 showed normal segundo. Thyroid peroxidase antibody was normal at 7. Thyroglobulin antibody less than 1.0. COVID-19 PCR done on 02/15/2021 was negative. REASON FOR ADMISSION: Back on 02/13/2021 show 85-year-old female, transferred from medical floor due to continued agitation, sundowning. She has had a diagnosis of dementia with worsening sundowning. She was admitted originally due to a fall around 2 weeks ago. HOSPITAL COURSE: The patient was admitted to Geriatric Psychiatry Unit. I elected to start her on Seroquel, titrated to 37.5 mg 3 times a day with Depakote this admission. We have initial level of 33 on 02/17/2021, increased to 500 twice a day and that level was 75. Last dig level on 02/19/2021 was 0.4 nanograms/dL. PHYSICAL EXAMINATION: VITAL SIGNS: On the day of discharge, temperature 35.9, pulse 88, respirations 15, BP 124/70, O2 sat 88%. MUSCULOSKELETAL: Nonambulatory in Syeda chair with cushion. MENTAL STATUS EXAMINATION: This is a well-developed, ill-appearing female, appearing at least stated age. Attention impaired. Concentration impaired. Speech nonsensical most of the time. Mood and affect congruent, constricted. No suicidal or homicidal behavior. cannot asseses well for auditory/ visual type hallucinations. Memory grossly impaired. Insight impaired, judgment impaired. Fund of knowledge well below average. PROGNOSIS: For this patient is poor given the age of 85, having a progressive neurodegenerative picture and comorbidities. <ELECTRONICALLY SIGNED> By: Gualberto Swann, 02/27/21 1601 51 20 Gualberto Swann DO /nt
== END 2021-02-26 11:00 | DRG 56 ==
LOC: SBH
PROVIDERS: Internal Medicine; ADMIT Psychiatry & Neurology Psychiatry; ATTEND Psychiatry & Neurology Psychiatry
DX: G30.9 Alzheimer's disease, unspecified (principal); F02.81 Dementia in other diseases classified elsewhere, unspecified severity, with behavioral disturbance; E43 Unspecified severe protein-calorie malnutrition; I11.0 Hypertensive heart disease with heart failure; S52.92XA Unspecified fracture of left forearm, initial encounter for closed fracture; I48.91 Unspecified atrial fibrillation; I50.9 Heart failure, unspecified; E05.80 Other thyrotoxicosis without thyrotoxic crisis or storm; Z88.6 Allergy status to analgesic agent; Z90.11 Acquired absence of right breast and nipple; Z68.35 Body mass index [BMI] 35.0-35.9, adult; Z79.899 Other long term (current) drug therapy; X58.XXXA Exposure to other specified factors, initial encounter; Y93.89 Activity, other specified; Y92.89 Other specified places as the place of occurrence of the external cause; Y99.8 Other external cause status; Z20.822 Contact with and (suspected) exposure to COVID-19
CPT/HCPCS: 10880